=== PATIENT | female | born 1985 | race Hispanic/Latino ===

== ENCOUNTER 2020-10-21 00:33 | Inpatient (IN) | payer OTHER ==
[2020-10-21] VITALS (26 sets, daily range): BP systolic 114–140; BP diastolic 57–78
[~2020-10-21] VITALS: Ht 157.5 cm; Wt 146.1 kg
[2020-10-21] MEDS ORDERED: ONDANSETRON HCL 4 MG/2 ML VIAL ONE ×2 (01:04→11:14)
[2020-10-21] MEDS ORDERED: METOCLOPRAMIDE 10 MG/2 ML VIAL ONE (01:04)
[2020-10-21] MEDS ORDERED: PANTOPRAZOLE 40 MG/VIAL ONE (01:04)
[2020-10-21 01:05] LABS: BASOPHILS % (AUTO) 0.5 % (0.0-5.0); HEMATOCRIT 40.1 % (36-48); LYMPHOCYTES % (AUTO) 9.1 % (21.0-51.0); MEAN CORPUSCULAR HEMOGLOBIN 28.3 pg (27.0-33.0); MEAN CORPUSCULAR HGB CONC 33.2 g/dL (32.0-36.0); MEAN CORPUSCULAR VOLUME 85.3 fL (79-99); MONOCYTES % (AUTO) 3.9 % (3.0-13.0); NEUTROPHILS % (AUTO) 85.9 % (40.0-77.0); PLATELET COUNT (AUTO) 253 K/uL (130-400); WHITE BLOOD COUNT (AUTO) 21.6 K/uL (4.8-10.8)
[2020-10-21] MEDS ORDERED: FAMOTIDINE/PF 20 MG/2 ML VIAL IV ONE (01:05)
[2020-10-21 01:09] LABS: APPEARANCE,URINE Clear (CLEAR); BILIRUBIN,URINE Negative (NEGATIVE); COLOR,URINE Yellow (YELLOW); GLUCOSE, URINE (UA) Negative (NEGATIVE); KETONES,URINE Negative (NEGATIVE); LEUKOCYTE ESTERASE ,URINE Trace (NEGATIVE); NITRATE,URINE Negative (NEGATIVE); OCCULT BLOOD,URINE Moderate (NEGATIVE); PH,URINE 6.5 (5.0-8.0); PROTEIN,URINE Negative (NEGATIVE)
[2020-10-21 01:14] LABS: CREATININE 0.9 mg/dL (0.5-1.5); POTASSIUM 3.9 mmol/L (3.5-5.1)
[2020-10-21 01:15] LABS: HCG,QUAL RESULT NEGATIVE (NEGATIVE)
[2020-10-21 01:18] LABS: ALBUMIN 3.6 g/dL (3.5-5.0); BILIRUBIN,TOTAL 0.5 mg/dL (0.2-1.0); TOTAL PROTEIN, SERUM 7.7 g/dL (6.0-8.3)
[2020-10-21 01:19] LABS: BACTERIA,URINE Rare /HPF (None Seen); RBC,URINE 0-1 /HPF (0-1); SQUAMOUS EPITHELIAL CELL,UR 0-2 /HPF (0-2); WBC,URINE 0-1 /HPF (0-1)
[2020-10-21 01:20] LABS: PROTHROMBIN TIME 10.9 SEC (9.6-11.6)
[2020-10-21 01:22] LABS: PARTIAL THROMBOPLASTIN TIME 31.4 SEC (26.3-35.5)
[2020-10-21] MEDS ORDERED: ZOSYN 3.375GM+NS 50ML 50 ML IV ONE (02:08)
[2020-10-21] MEDS ORDERED: ONDANSETRON HCL 4 MG/2 ML VIAL IV PRN (03:30)
[2020-10-21] MEDS ORDERED: ACETAMINOPHEN 325 MG TAB PO PRN ×2 (03:30)
[2020-10-21] MEDS ORDERED: ALBUTEROL SULFATE 0.083% 2.5 MG/3 ML INH IH PRN (04:15)
[2020-10-21] MEDS ORDERED: PHARMACY COMMUNICATION MISC SCH (04:15)
[2020-10-21] MEDS ORDERED: ZOSYN 3.375GM+NS 50ML 50 ML IV SCH (05:00)
[2020-10-21] MEDS: SODIUM CHLORIDE 0.9% 1000ML 1,000 ML IV SCH ×2 (05:35→13:30)
[2020-10-21 06:20] LABS: BASOPHILS % (AUTO) 0.3 % (0.0-5.0); EOSINOPHILS % (AUTO) 0.1 % (0.0-8.0); HEMATOCRIT 36.9 % (36-48); MEAN CORPUSCULAR HEMOGLOBIN 27.7 pg (27.0-33.0); MEAN CORPUSCULAR HGB CONC 32.2 g/dL (32.0-36.0); MONOCYTES % (AUTO) 5.4 % (3.0-13.0); NEUTROPHILS % (AUTO) 79.7 % (40.0-77.0); PLATELET COUNT (AUTO) 210 K/uL (130-400); RED BLOOD CELL COUNT(AUTO) 4.29 MIL/uL (4.00-5.50); RED CELL DISTRIBUTION WIDTH 13.2 % (11.0-15.5); WHITE BLOOD COUNT (AUTO) 17.5 K/uL (4.8-10.8)
[2020-10-21 06:40] LABS: ALBUMIN 2.9 g/dL (3.5-5.0); BILIRUBIN,TOTAL 0.5 mg/dL (0.2-1.0); CREATININE 0.8 mg/dL (0.5-1.5); POTASSIUM 3.8 mmol/L (3.5-5.1); TOTAL PROTEIN, SERUM 6.4 g/dL (6.0-8.3)
[2020-10-21] MEDS: MORPHINE SULFATE 2 MG/ML 1ML SYG IV PRN ×3 (08:16→18:05)
[2020-10-21] MEDS: SENNOSIDES 8.6 MG TABLET PO SCH ×2 (09:00→20:45)
[2020-10-21] MEDS: ZOSYN 3.375GM+NS 50ML 50 ML IV SCH ×2 (10:10→18:09)
[2020-10-21] MEDS ORDERED: GLYCOPYRROLATE 1 MG/5 ML SYRINGE ONE (11:14)
[2020-10-21] MEDS ORDERED: PROPOFOL 10 MG/ML 20ML VIAL IV ONE (11:14)
[2020-10-21] MEDS ORDERED: LIDOCAINE PF 2% 5ML ABBOJECT ONE (11:14)
[2020-10-21] MEDS ORDERED: DEXAMETHASONE SOD PHOSPHATE 10MG/ML 1ML VIAL ONE (11:14)
[2020-10-21] MEDS ORDERED: SUCCINYLCHOLINE CHLORIDE 20 MG/ML 10 ML VIAL ONE (11:14)
[2020-10-21] MEDS ORDERED: ROCURONIUM 10MG/1ML SYR 10 MG/ML ML ONE (11:15)
[2020-10-21] MEDS ORDERED: MIDAZOLAM HCL 1 MG/ML 2ML VIAL ONE (11:15)
[2020-10-21] MEDS ORDERED: NEOSTIGMINE 5MG/5ML SYR IV ONE (11:15)
[2020-10-21] MEDS ORDERED: FENTANYL CITRATE PF 50 MCG/1 ML 2ML VIAL ONE ×3 (11:15→12:55)
[2020-10-21] MEDS ORDERED: MEPERIDINE-PF 25 MG/ML SYG ONE (11:16)
[2020-10-21] MEDS ORDERED: BUPIVACAINE/PF 0.5% 30ML VIAL ONE (11:20)
[2020-10-21] MEDS: LACTATED RINGERS 1000ML 1,000 ML IV ONE ×2 (12:15→12:30)
[2020-10-21] MEDS ORDERED: KETOROLAC TROMETHAMINE 30MG/ML ONE (12:52)
[2020-10-21] MEDS ORDERED: MORPHINE SULFATE 2 MG/ML 1ML SYG IV PRN (13:45)
[2020-10-21] MEDS ORDERED: HYDROCODONE/ACETAMINOPHEN 5/325 MG TAB PO PRN (13:45)
[2020-10-21] MEDS: LACTATED RINGERS 1000ML 1,000 ML IV SCH (14:29)
[2020-10-22] MEDS: ZOSYN 3.375GM+NS 50ML 50 ML IV SCH ×2 (01:59→09:04)
[2020-10-22] MEDS: LACTATED RINGERS 1000ML 1,000 ML IV SCH (03:40)
[2020-10-22 04:00] VITALS: BP 119/66
[2020-10-22 07:00] VITALS: BP 104/51
[2020-10-22] MEDS ORDERED: KETO10 PO (10:33)
[2020-10-22] MEDS ORDERED: LEVO500T89 PO (10:33)
[2020-10-22 10:36] LABS: HEMATOCRIT 34.7 % (36-48); MEAN CORPUSCULAR HEMOGLOBIN 28.1 pg (27.0-33.0); MEAN CORPUSCULAR HGB CONC 32.6 g/dL (32.0-36.0); MEAN CORPUSCULAR VOLUME 86.3 fL (79-99); RED BLOOD CELL COUNT(AUTO) 4.02 MIL/uL (4.00-5.50); RED CELL DISTRIBUTION WIDTH 13.1 % (11.0-15.5); WHITE BLOOD COUNT (AUTO) 16.2 K/uL (4.8-10.8)
[2020-10-22 10:48] LABS: CREATININE 0.8 mg/dL (0.5-1.5); POTASSIUM 3.7 mmol/L (3.5-5.1)
[2020-10-22 10:53] LABS: ALBUMIN 2.7 g/dL (3.5-5.0); BILIRUBIN,TOTAL 0.4 mg/dL (0.2-1.0); TOTAL PROTEIN, SERUM 6.2 g/dL (6.0-8.3)
[2020-10-22 11:00] VITALS: BP 103/66
== END 2020-10-22 14:00 | disposition home or self-care (01) | DRG 418 ==
LOC: EDH 00:33 → EDHIP 00:34 → 3CH 05:22
PROVIDERS: ADMIT Internal Medicine; ATTEND Internal Medicine
PROC: 0FT44ZZ Resection of Gallbladder, Percutaneous Endoscopic Approach (ICD-10-PCS; principal; 2020-10-21 11:34)
DX: K80.00 Calculus of gallbladder with acute cholecystitis without obstruction (principal); E87.1 Hypo-osmolality and hyponatremia; Z68.43 Body mass index [BMI] 50.0-59.9, adult; J45.909 Unspecified asthma, uncomplicated; K59.00 Constipation, unspecified; E66.01 Morbid (severe) obesity due to excess calories; K82.8 Other specified diseases of gallbladder
CPT/HCPCS: 36415; 76705; 80053; 80061; 81001; 81025; 83690; 84145; 85025; 85027; 85610; 85730; 87040; 93005; 94664; C9113; G0378; J0330; J1100; J1885; J2001; J2175; J2250; J2405; J2543; J2704; J2710; J2765; J3010; J3490; J7030; J7120

== ENCOUNTER 2024-07-01 22:21 | Emergency (ER) | payer SELFPAY ==
[~2024-07-01] VITALS: Ht 157.5 cm; Wt 117.9 kg
[~2024-07-01 22:21] MED LIST: KETO10 PO; LEVO-70 PO
--- NOTE | 2024-07-01 22:52 | ERN ---
ED Note History of Present Illness Stated Complaint: HEADACHE Chief Complaint: Headache Time Seen by MD: 22:23 Dictation: Patient is a 38-year-old female morbid obesity who presented to the ER complaining of headache x2 weeks associated with on and off dizziness, patient numbness bilateral. She denies vision changes. No fever no chills. She says she has been taking [id number] pain killers without improvement. She denied history of migraine. Patient does reports a visits to the emergency department 1 year ago for headache. Allergies: Coded Allergies: No Known Drug Intolerances (Verified Allergy, Unknown, 10/21/20) Home Meds Active Scripts Ketorolac Tromethamine (Toradol) 10 Mg Tab, 10 MG PO QIDP PRN for PAIN LEVEL 4 TO 6 for 5 Days, #20 TAB Prov:SABA LU Jr., MD 10/22/20 Levofloxacin (Levofloxacin) 500 Mg Tablet, 500 MG PO DAILY for 5 Days, #5 TAB Prov:SABA LU Jr., MD 10/22/20 Past Medical History Past Medical History: Asthma Surgical History: Cholecystectomy, LMP: Jun 23, 2024 Review of System Dictation NEGATIVE EXCEPT PER HPI Constitutional: Negative for fever,chills, and weight loss Eyes: Negative for injury, pain,redness, and discharge ENT: Negative for injury,pain or swelling Cardiovascular: denies chest pain, palpitations, and edema Respiratory: Negative for shortness of breath, cough, and wheezing, Abdomen/GI: Negative for abdominal pain, nausea, vomiting, diarrhea, and constipation Back: Negative for injury and pain : Negative for injury, bleeding and discharge MS/Extremity: Negative for injury and deformity Skin: Negative for rash, and discoloration Neuro: Headache and facial numb Psych: Negative for suicide ideation, homicidal ideation, and hallucinations Initial Vital Sign VS Vital Signs Date Time Temp Pulse Resp B/P (MAP) Pulse Ox O2 Delivery O2 Flow Rate FiO2 07/01/24 22:22 98.8 90 18 164/94 96 Room Air 0 Physical Exam Dictation General: awake, alert, NAD Head/Face: Normocephalic, atraumatic Eyes: PERRL, EOMI, vision at baseline ENT: oral cavity clear, TMs clear, no signs of infection Neck: Trachea midline, supple, no nuchal rigidity Cardiovascular: RRR, normal S1/S2, No MRGs, no JVD Respiratory: CTAB, no respiratory distress, No rales or wheezes Abdomen: Soft , no tender Skin: Warm, dry, normal turgor, no rash MS/Extremity: Pulses equal, no cyanosis, neurovascular intact, FROM Neuro: COAx4, GCS 15, strength 5/5, CN 2-12 intact, normal cerebellar exam, normal gait, Psych: Normal behavior, mood, and affect normal Results (Laboratory/Radiology) Laboratory/Radiology Laboratory Tests Test 07/01/24 23:06 Urine HCG, Qualitative NEGATIVE (NEGATIVE) ED Course ED Course Orders Procedure Category Date Status Time Ct Head/Brain W/O CT 07/01/24 Resulted Contrast 22:42 Ketorolac PHA 07/01/24 Complete Tromethamine 30mg/Ml 23:00 Metoclopramide 10 PHA 07/01/24 Complete Mg/2 Ml Vial (Reglan 1 23:00 Diphenhydramine Hcl PHA 07/01/24 Complete (Benadryl Inj) 23:00 ,Urine Test LAB 07/01/24 Complete 23:15 Current Medications Medications (Trade) Dose Ordered Sig/Escobar Route PRN Reason Start Time Stop Time Status Last Admin Dose Admin Diphenhydramine HCl (BENAdryl INJ) 25 mg ONCE ONCE IV 07/01/24 23:00 07/01/24 23:01 DC 07/02/24 00:01 Ketorolac Tromethamine (toRADol) 30 mg ONCE ONCE IVP 07/01/24 23:00 07/01/24 23:01 DC 07/02/24 00:01 Metoclopramide HCl (regLAN 10MG IV) 10 mg ONCE ONCE IVP 07/01/24 23:00 07/01/24 23:01 DC 07/02/24 00:01 Vital Signs Date Time Temp Pulse Resp B/P (MAP) Pulse Ox O2 Delivery O2 Flow Rate FiO2 07/01/24 22:22 98.8 90 18 164/94 96 Room Air 0 Medical Decision Making MDM Patient is a 38-year-old female morbid obesity who presented to the ER complaining of headache x2 weeks associated with on and off dizziness, patient numbness bilateral. She denies vision changes. No fever no chills. She says she has been taking [id number] pain killers without improvement. She denied history of migraine. Patient does reports a visits to the emergency department 1 year ago for headache. Rationale: Migraine, tension headache, stroke Ordered CT without contrast of head/brain FINDINGS: The ventricles and extraventricular CSF spaces are nondilated for patient's age. There is no midline shift, mass effect or herniation. No acute intracranial bleed is seen. Visualized portion of the paranasal sinuses are grossly within normal limits. IMPRESSION: 1. No acute intracranial bleed is seen. Reglan 10 mg IV, ketorolac 30 mg IV, Benadryl 25 mg IV Patient he will be re-evaluated after medications treatment. Patient is hemodynamically stable, he will be discharged with pain medication and recommended to follow up with the PCP as outpatient. DX & DISP Disposition: Discharge Departure Impression: Primary Impression: Head ache Condition: Stable Scripts Acetaminophen (Tylenol) 500 Mg Tab 1 TAB PO Q6HPRN PRN for pain or fever for 15 Days, #30 TAB 0 Refills Prov: MEIR BHAKTA MD 07/02/24 Ketorolac Tromethamine (Ketorolac Tromethamine) 10 Mg Tablet 1 TAB PO Q6HPRN PRN for pain for 5 Days, #20 TAB 0 Refills Prov: MEIR BHAKTA MD 07/02/24 Additional Instructions: RETURN TO ER FOR ANY ACUTE OR WORSENING SYMPTOMS. FOLLOW-UP IN 1-2 DAYS WITH PRIMARY PROVIDER FOR RECHECK OF TODAY'S SYMPTOMS. Referrals: SELF,REFERRAL (PCP) MEIR BHAKTA MD Jul 01, 2024 22:52
[2024-07-02] MEDS: ketOROlac 30MG VIAL (30MG/ML) IVP ONE (00:01)
[2024-07-02] MEDS: metoCLOPRAmide 10 MG/2 ML VIAL IVP ONE (00:01)
[2024-07-02] MEDS: DiphenhydrAMINE HCL 50 MG/ML VIAL IV ONE (00:01)
--- NOTE | 2024-07-02 00:10 | HMCIMG ---
CT HEAD/BRAIN W/O CONTRAST HISTORY: Intractable headaches COMPARISON: None TECHNIQUE: Multiple sequential axial images of the head were obtained from the base of the skull through vertex. Patient was not given contrast through intravenous route. FINDINGS: The ventricles and extraventricular CSF spaces are nondilated for patient's age. There is no midline shift, mass effect or herniation. No acute intracranial bleed is seen. Visualized portion of the paranasal sinuses are grossly within normal limits. IMPRESSION: 1. No acute intracranial bleed is seen. CT was performed with one or more following dose reduction techniques: automated exposure control, adjustment of the mA and kv according to patient's size, or use of a iterative reconstruction technique.
[2024-07-02 00:42] VITALS: BP 147/88; PULSE 88; RESP 17; TEMP 98.2; O2SAT 100
[2024-07-02] MEDS ORDERED: ACET-66 PO (00:44)
[2024-07-02] MEDS ORDERED: KETO10TA2 PO (00:44)
== END 2024-07-02 00:51 | disposition home or self-care (01) ==
LOC: EDH 22:21
DX: R51.9 Headache, unspecified (principal); J45.909 Unspecified asthma, uncomplicated; Z90.49 Acquired absence of other specified parts of digestive tract
CPT/HCPCS: 99285; 70450; 81025; 96374; 96375; J1200; J1885; J2765

== ENCOUNTER 2024-08-04 23:55 | Emergency (ER) | payer SELFPAY ==
[~2024-08-04] VITALS: Ht 157.5 cm; Wt 128.4 kg
[~2024-08-04 23:55] MED LIST changes: +ACET-66 PO; +KETO10TA2 PO
--- NOTE | 2024-08-05 00:33 | ERN ---
ED Note History of Present Illness Stated Complaint: C/O HEADACHE Chief Complaint: Headache Time Seen by MD: 00:00 Time Seen by Midlevel: 00:00 Dictation: The patient is a 39-year-old female with a history of cholecystectomy, C- section, migraines who presents to the emergency department with complaints of left-sided headache that has been going on for over a month. Patient reports that she was seen here and was seen by her PCP and started on Topamax but reports no improvement. Patient denies any head traumas, dizziness, nausea or vomiting. Patient reports also a swishing sound from bilateral ears that has been going on for the same amount time.. Denies any ear trauma. Denies any upper respiratory symptoms. Allergies: Coded Allergies: No Known Drug Intolerances (Verified Allergy, Unknown, 10/21/20) Home Meds Active Scripts Acetaminophen (Tylenol) 500 Mg Tab, 1 TAB PO Q6HPRN PRN for pain or fever for 15 Days, #30 TAB 0 Refills Prov:MEIR BHAKTA MD 07/02/24 Ketorolac Tromethamine (Ketorolac Tromethamine) 10 Mg Tablet, 1 TAB PO Q6HPRN PRN for pain for 5 Days, #20 TAB 0 Refills Prov:MEIR BHAKTA MD 07/02/24 Ketorolac Tromethamine (Toradol) 10 Mg Tab, 10 MG PO QIDP PRN for PAIN LEVEL 4 TO 6 for 5 Days, #20 TAB Prov:SABA LU Jr., MD 10/22/20 Levofloxacin (Levofloxacin) 500 Mg Tablet, 500 MG PO DAILY for 5 Days, #5 TAB Prov:SABA LU Jr., MD 10/22/20 Past Medical History Past Medical History: Asthma Surgical History: Cholecystectomy, LMP: Jul 07, 2024 RN Note Reviewed/Agreed w/PFSH: Yes Review of System Dictation Constitutional: Negative for fever,chills, and weight loss Eyes: Negative for injury, pain,redness, and discharge ENT: Negative for injury,pain or swelling positive for bilateral ear ringing Cardiovascular: Negative for chest pain, palpitations, and edema Respiratory: Negative for shortness of breath, cough, and wheezing, Abdomen/GI: Negative for abdominal pain, nausea, vomiting, diarrhea, and constipation Back: Negative for injury and pain : Negative for injury, bleeding and discharge MS/Extremity: Negative for injury and deformity Skin: Negative for rash, and discoloration Neuro: Negative for weakness, numbness, tingling, and seizure positive for headache Psych: Negative for suicide ideation, homicidal ideation, and hallucinations Initial Vital Sign VS Vital Signs Date Time Temp Pulse Resp B/P (MAP) Pulse Ox O2 Delivery O2 Flow Rate FiO2 08/04/24 23:57 98.1 76 20 151/86 100 Room Air Physical Exam Dictation Vital Signs reviewed General Appearance: Alert, oriented x 3, no acute distress, well developed, nourished. Head and Face: non-traumatic. Eyes: PERRL, pink conjunctivas, eyelid no trauma, anterior chamber with arcus senilis. Ears: Pinnas intact and no signs of trauma or erythema ear canals clear and no discharge TM no erythema Nose: No discharge, no bleeding. Oropharynx: Mouth normal, tongue pink. pharynx clear,no erythema, tonsils no exudates, no abscesses noted, mucous membrane moist Neck: Supple, non-tender, no thyromegaly, no masses, no JVD, no bruits Breast:Deferred Chest:No tenderness, no crepitus, no paradoxical movement, no retractions Lungs:Clear, well-ventilated, symmetric, no rales, no wheezing, no rhonchi, no stridor, good breath sounds bilaterally Heart: Regular rate, regular rhythm, no murmur, no gallops Vascular: no peripheral edema, Abdomen: Soft, positive bowel sounds, nondistended, no guarding, nontender, no rebound, no masses no hepatomegaly, no splenomegaly, no Villanueva's sign, no hernias. Rectal: Deferred Genital: Deferred Neurological: Normal speech, motor function intact, sensory function intact , upper extremities equal and strength, lower extremities equal in strength Musculoskeletal: Neck nontender, full range of motion, back nontender, full range of motion, Extremities: nontender, full range of motion Skin: Color pink, dry, no turgor, no rash, no lacerations, no abrasions, no contusions. Lymphatic: Deferred Results (Laboratory/Radiology) Laboratory/Radiology Laboratory Tests Test 08/05/24 02:03 White Blood Count 9.9 K/uL (4.8-10.8) Red Blood Count 4.10 MIL/uL (4.00-5.50) Hemoglobin 12.0 g/dL (12.0-16.0) Hematocrit 36.8 % (36-48) Mean Corpuscular Volume 89.8 fL (79-99) Mean Corpuscular Hemoglobin 29.3 pg (27.0-33.0) Mean Corpuscular Hemoglobin Concent 32.6 g/dL (32.0-36.0) Red Cell Distribution Width 13.3 % (11.0-15.5) Platelet Count 208 K/uL (130-400) Mean Platelet Volume 11.2 fL (7.5-10.5) H Immature Granulocyte % (Auto) 0.3 % (0-1) Neutrophils (%) (Auto) 55.2 % (40.0-77.0) Lymphocytes (%) (Auto) 34.7 % (21.0-51.0) Monocytes (%) (Auto) 7.6 % (3.0-13.0) Eosinophils (%) (Auto) 1.6 % (0.0-8.0) Basophils (%) (Auto) 0.6 % (0.0-5.0) Neutrophils # (Auto) 5.5 K/uL (1.8-7.7) Lymphocytes # (Auto) 3.4 K/uL (1.0-4.8) Monocytes # (Auto) 0.8 K/uL (0.1-1.0) Eosinophils # (Auto) 0.16 K/uL (0.00-0.70) Basophils # (Auto) 0.06 K/uL (0.00-0.20) Absolute Immature Granulocyte (auto 0.03 K/uL (0-1) Nucleated Red Blood Cells 0.0 % (0.0-0.19) Sodium Level 140 mmol/L (136-145) Potassium Level 3.8 mmol/L (3.5-5.1) Chloride Level 107 mmol/L (101-111) Carbon Dioxide Level 31 mmol/L (21-32) Blood Urea Nitrogen 14 mg/dL (7-18) Creatinine 0.8 mg/dL (0.5-1.0) Glomerular Filtration Rate Calc 95 mL/min (>90) Random Glucose 91 mg/dL (70-105) Total Calcium 8.1 mg/dL (8.5-10.1) L Serum Test, Qualitative NEGATIVE (NEGATIVE) Labs Reviewed?: Yes ED Course ED Course Orders Procedure Category Date Status Time Cbc With Differential LAB 08/05/24 Complete 00:18 0.9%Nacl 1000ml (Ns PHA 08/05/24 Complete 1000ml) 00:30 Basic Metabolic Panel LAB 08/05/24 Complete 00:18 Testing, LAB 08/05/24 Complete Serum Hcg 00:18 Metoclopramide 10 PHA 08/05/24 Complete Mg/2 Ml Vial (Reglan 1 00:30 Diphenhydramine Hcl PHA 08/05/24 Complete (Benadryl Inj) 00:30 Current Medications Medications (Trade) Dose Ordered Sig/Escobar Route PRN Reason Start Time Stop Time Status Last Admin Dose Admin Diphenhydramine HCl (BENAdryl INJ) 25 mg ONCE ONCE IV 08/05/24 00:30 08/05/24 00:31 DC 08/05/24 02:08 Metoclopramide HCl (regLAN 10MG IV) 10 mg ONCE ONCE IVP 08/05/24 00:30 08/05/24 00:31 DC 08/05/24 02:08 Sodium Chloride 1,000 ml @ 0 mls/hr ONCE ONCE IV 08/05/24 00:30 08/05/24 00:31 DC 08/05/24 02:08 Vital Signs Date Time Temp Pulse Resp B/P (MAP) Pulse Ox O2 Delivery O2 Flow Rate FiO2 08/04/24 23:57 98.1 76 20 151/86 100 Room Air Medical Decision Making MDM The patient is a 39-year-old female with a history of cholecystectomy, C- section, migraines who presents to the emergency department with complaints of left-sided headache that has been going on for over a month. Patient reports that she was seen here and was seen by her PCP and started on Topamax but reports no improvement. Patient denies any head traumas, dizziness, nausea or vomiting. Patient reports also a swishing sound from bilateral ears that has been going on for the same amount time.. Denies any ear trauma. Denies any upper respiratory symptoms. CBC showed no leukocytosis, no anemia, chemistry showed no electrolyte imbalance, normal renal function. Patient instructed to follow up with PCP for neurology referral in ENT. Patient in no acute distress, neurologically intact. Differential diagnosis: Migraine headache, electrolyte imbalance, dehydration, otitis media Need for hospitalization: Patient does not meet criteria for hospitalization. There are no social concerns with this patient. DX & DISP Disposition: Discharge Departure Impression: Primary Impression: Headache Additional Impression: Tinnitus Condition: Stable Additional Instructions: Please follow up with the primary doctor in 1-2 days. You might need a referral to a neurology or ENT by your PCP. If symptoms worsen please return to ER. FOLLOW-UP WITH PRIMARY CARE PROVIDER IN 1 TO 2 DAYS. TAKE MEDICATIONS DIRECTED HERE IN THE EMERGENCY ROOM. OKAY TO CONTINUE HOME MEDICATIONS UNLESS OTHERWISE DISCUSSED DURING YOUR VISIT IN THE EMERGENCY ROOM TODAY. RETURN TO YOUR NEAREST EMERGENCY ROOM IF SYMPTOMS WORSEN OR IF THERE IS NO IMPROVEMENT. CALL 911 IF YOU NEED IMMEDIATE ASSISTANCE. TAKE TYLENOL OR MOTRIN OVER -THE-COUNTER NEEDED AND IF NO CONTRAINDICATIONS ARE PRESENT. INCREASE ORAL HYDRATION. A WOUND CULTURE OR URINE CULTURE WAS ORDERED HERE IN THE EMERGENCY ROOM DEPARTMENT PLEASE FOLLOW-UP WITH PRIMARY CARE PROVIDER AND ADVISE THEM TO GET REPEAT PORTS FROM OUR FACILITY. IF YOU HAD ANY FOZIA WRAP/SPLINTS THAT WERE APPLIED HERE, PLEASE DO NOT REMOVE THEM UNTIL YOU SEE YOUR PRIMARY CARE OR SPECIALTY. Referrals: ARTHUR HEAD M.D. (PCP) Time of Disposition: 02:58 I have reviewed the case, and I agree with, Diagnosis and Plan SEDA GILL Aug 05, 2024 00:33
[2024-08-05] MEDS: 0.9%NACL 1000ML 1,000 ML IV ONE (02:08)
[2024-08-05] MEDS: metoCLOPRAmide 10 MG/2 ML VIAL IVP ONE (02:08)
[2024-08-05] MEDS: DiphenhydrAMINE HCL 50 MG/ML VIAL IV ONE (02:08)
[2024-08-05 02:17] LABS: BASOPHILS # (AUTO) 0.06 K/uL (0.00-0.20); BASOPHILS % (AUTO) 0.6 % (0.0-5.0); EOSINOPHILS # (AUTO) 0.16 K/uL (0.00-0.70); EOSINOPHILS % (AUTO) 1.6 % (0.0-8.0); HEMATOCRIT 36.8 % (36-48); IMMATURE GRANULOCYTE ABSOLUTE 0.03 K/uL (0-1); LYMPHOCYTES # (AUTO) 3.4 K/uL (1.0-4.8); LYMPHOCYTES % (AUTO) 34.7 % (21.0-51.0); MEAN CORPUSCULAR HEMOGLOBIN 29.3 pg (27.0-33.0); MEAN CORPUSCULAR HGB CONC 32.6 g/dL (32.0-36.0); MEAN CORPUSCULAR VOLUME 89.8 fL (79-99); MONOCYTES # (AUTO) 0.8 K/uL (0.1-1.0); MONOCYTES % (AUTO) 7.6 % (3.0-13.0); NEUTROPHILS # (AUTO) 5.5 K/uL (1.8-7.7); NEUTROPHILS % (AUTO) 55.2 % (40.0-77.0); PLATELET COUNT (AUTO) 208 K/uL (130-400); RED CELL DISTRIBUTION WIDTH 13.3 % (11.0-15.5); WHITE BLOOD COUNT (AUTO) 9.9 K/uL (4.8-10.8)
[2024-08-05 02:25] LABS: CREATININE 0.8 mg/dL (0.5-1.0); POTASSIUM 3.8 mmol/L (3.5-5.1)
[2024-08-05 03:22] VITALS: BP 117/55; PULSE 65; RESP 16; TEMP 98.2; O2SAT 97
== END 2024-08-05 03:31 | disposition home or self-care (01) ==
LOC: EDH 23:55
DX: G43.909 Migraine, unspecified, not intractable, without status migrainosus (principal); H93.19 Tinnitus, unspecified ear; J45.909 Unspecified asthma, uncomplicated; Z90.49 Acquired absence of other specified parts of digestive tract; Z98.890 Other specified postprocedural states
CPT/HCPCS: 99284; 80048; 84703; 85025; 36415; 96374; 96375; J1200; J7030; J2765